=== PATIENT | male | born 1975 | race Caucasian/White ===

== ENCOUNTER 2020-10-22 14:54 | Emergency (ER) | payer BC ==
--- NOTE | 2020-10-22 15:45 | XRAY Report ---
PROCEDURE: Ankle 3 View RT INDICATIONS: ankle pain TECHNIQUE: 3 views of the ankle were acquired. COMPARISON: None FINDINGS: Bones: Comminuted fracture of the distal left tibia. Soft tissues: No tibiotalar joint effusion. Achilles tendon appears normal. Lateral soft tissue swe lling is noted and ligamentous injury cannot be excluded. IMPRESSION: Distal fibula fracture. Reviewed by: Jackie Smith MD, PhD on 10/22/2020 3:44 PM PST Approved by: Jackie Smith MD, PhD on 10/22/2020 3:44 PM PST Station ID: [id number]
--- NOTE | 2020-10-22 17:35 | ED Physician Documentation ---
History of Present Illness - Stated complaint Stated Complaint: RIGHT ANKLE PX - Chief complaint Chief Complaint: Ext Problem - History obtained from History obtained from: Patient - Additonal information Additional information: 45ym, previously healthy p/w sudden onset R ankle pain when he rolled his ankle while walking dog just [employer]. pain is constant aching worse with weight bearing, a/w mild swelling, nonradiating, localised to R lateral ankle. denies other injuries. Review of Systems Skin: denies: Lesions, Abrasion (s), Laceration (s) Musculoskeletal: reports: Extremity pain Neurologic: denies: Numbness PD PAST MEDICAL HISTORY - Past Medical History Past Medical History: No - Allergies Allergies/Adverse Reactions: Allergies Allergy/AdvReac Type Severity Reaction Status Date / Time benzocaine [From Solarcaine] AdvReac Unknown Verified 10/22/20 15:06 triclosan [From Solarcaine] AdvReac Unknown Verified 10/22/20 15:06 - Social History Does the pt smoke?: No Smoking Status: Never smoker PD ED PE NORMAL - Vitals Vital signs reviewed: Yes - General General: Alert and oriented X 3, No acute distress - HEENT HEENT: Atraumatic, PERRL, EOMI - Derm Derm: Normal color, Warm and dry, Other (mild swelling without deformity R lateral ankle) - Extremities Extremities: No deformity, Other (R ankle tender with rom. R lateral distal fibula ttp. 2+ DP/PT pulses. normal sensation and strength) - Neuro Neuro: Alert and oriented X 3, No motor deficit, No sensory deficit - Psych Psych: Normal mood, Normal affect Results - Vitals Vitals: Oxygen O2 Source Room air PD MEDICAL DECISION MAKING - ED course ED course: 45-year-old man presents with distal fibula fracture that is nondisplaced, discussed with Dr. Palma. He did have a brief syncopal episode he attributed to pain and states is very common for him. had preceding dizziness and wave of nausea. returned to baseline right away. normal neurologic exam. cardiac monitoring normal. Will apply posterior splint, crutches and follow-up in orthopedics clinic in 1 week. Strict return precautions given. Departure - Departure Disposition: 01 Home, Self Care Clinical Impression: Fracture of distal fibula Condition: Good Instructions: ED RICE Follow-Up: Tim Palma MD [Provider Admit Priv/Credential] - Comments: You are seen in the emergency department for distal fibula fracture. Please wear your splint/ crutches, return if any of the symptoms we discussed occur, or if you have new or worsening symptoms or other concerns. Follow-up with orthopedics in 1 week. Discharge Date/Time: 10/22/20 18:00
[2020-10-22 18:17] VITALS: BP 138/80
== END 2020-10-22 18:00 | disposition home or self-care (01) ==
LOC: ED 14:54
DX: S82.831A Other fracture of upper and lower end of right fibula, initial encounter for closed fracture (principal); X50.1XXA Overexertion from prolonged static or awkward postures, initial encounter; Y93.K1 Activity, walking an animal; Y92.89 Other specified places as the place of occurrence of the external cause
CPT/HCPCS: 99282; 99283

== ENCOUNTER 2020-10-28 07:00 | Outpatient (CLI) | payer BC ==
--- NOTE | 2020-10-28 15:55 | XRAY Report ---
PROCEDURE: Ankle 3 View RT INDICATIONS: RT NONDISPLACED FRACTURE OF LAT MALLEOLUS TECHNIQUE: 3 views of the ankle were acquired. COMPARISON: 10/22/2020 FINDINGS: Bones: There is a mildly comminuted distal right fibular fracture without significant displacement. A lignment is stable. Moderate overlying soft tissue edema. Ankle mortise is normally aligned. No makayla picious bony lesions. Soft tissues: No substantial tibiotalar joint effusion. Achilles tendon appears normal. IMPRESSION: Stable radiographic appearance and alignment of known comminuted distal right fibular fr acture. Reviewed by: Isra Mcduffie MD on 10/28/2020 3:54 PM PST Approved by: Isra Mcduffie MD on 10/28/2020 3:54 PM PST Station ID: [id number]
== END 2020-10-28 23:59 | disposition home or self-care (01) ==
LOC: DI.N 07:00
PROVIDERS: ATTEND Orthopaedic Surgery
DX: S82.64XA Nondisplaced fracture of lateral malleolus of right fibula, initial encounter for closed fracture (principal)

== ENCOUNTER 2020-11-11 07:00 | Outpatient (CLI) | payer BC ==
--- NOTE | 2020-11-11 12:20 | XRAY Report ---
PROCEDURE: Ankle 3 View RT INDICATIONS: RT ANKLE FxExam done Weightbearing TECHNIQUE: 3 views of the ankle were acquired. COMPARISON: Right ankle radiographs 10/28/2020 FINDINGS: Bones: Distal fibular metaphyseal fracture is redemonstrated with unchanged alignment. There is perio steal reaction and mild sclerosis compatible with progressive healing changes. Ankle mortise is demetria lly aligned. No suspicious bony lesions. Soft tissues: Mild soft tissue edema is seen over the lateral malleolus. IMPRESSION: Mild progressive healing changes involving the previously seen distal fibular fracture w ith unchanged alignment. Reviewed by: Kevin Castro MD on 11/11/2020 12:19 PM PST Approved by: Kevin Castro MD on 11/11/2020 12:19 PM PST Station ID: [id number]
== END 2020-11-11 23:59 | disposition home or self-care (01) ==
LOC: DI.N 07:00
PROVIDERS: ATTEND Orthopaedic Surgery
DX: S82.64XA Nondisplaced fracture of lateral malleolus of right fibula, initial encounter for closed fracture (principal)